=== PATIENT | male | born 1975 | race Caucasian/White ===

== ENCOUNTER → 2024-11-19 | Outpatient (CLI) | payer OTHER, SELFPAY ==
[2024-11-19 13:11] LABS: AST(SGOT) 11 U/L (15-37); Alanine Aminotransfer ALT/SGPT 26 U/L (16-61); Albumin, Serum 3.4 g/dL (3.2-5.0); Alkaline Phosphatase 63 U/L (45-117); Anion Gap 3 (5-15); BUN 14 mg/dL (7-18); BUN/Creat Ratio 15.4 RATIO (10-20); Calcium,Total 8.6 mg/dL (8.5-10.1); Chloride 108 mmol/L (98-107); Cholesterol 258 mg/dL (200); Creatinine, Serum 0.91 mg/dL (0.70-1.30); EST Glomerular Filtration Rate 94 mL/min (>60); Est Glom Filt Rate - Afr Amer 114 mL/min (>60); Globulin 3.4 g/dL (2.2-4.2); Glucose 105 mg/dL (74-106); High Density Lipoprotein 52 mg/dL; Potassium 4.3 mmol/L (3.5-5.1); Protein, Total 6.8 g/dL (6.4-8.2); Sodium Level 138 mmol/L (136-145); Triglycerides 68 mg/dL; Very Low Density Lipoprotein 14 mg/dL (5-40)
== END | disposition home or self-care (01) ==
LOC: BIMLAB 08:18
PROVIDERS: PCP Family Medicine; Referring Provider Family Medicine; Visit Provider Family Medicine
DX: R25.2 Cramp and spasm (principal)
CPT/HCPCS: 36415; 80053; 80061

== ENCOUNTER → 2025-08-19 | Outpatient (CLI) | payer OTHER, SELFPAY ==
[2025-08-19 08:20] LABS: Cholesterol 172 mg/dL (<=200); Low Density Lipoprotein Calc. 99 mg/dL; Triglycerides 85 mg/dL; Very Low Density Lipoprotein 17 mg/dL (5-40); cholesterol:hdl ratio screen 3.07
== END | disposition home or self-care (01) ==
PROVIDERS: PCP Family Medicine; Referring Provider Family Medicine; Visit Provider Family Medicine
DX: E78.5 Hyperlipidemia, unspecified (principal)
CPT/HCPCS: 36415; 80061